=== PATIENT | female | born 1985 | race Caucasian/White ===

== ENCOUNTER → 2017-02-11 | Outpatient (CLI) | payer BC ==
--- NOTE | 2017-02-11 15:40 | NM ---
EXAMINATION TYPE: NM hepatobiliary w EF DATE OF EXAM: 02/11/2017 COMPARISON: None. HISTORY: Right upper quadrant pain. TECHNIQUE: After the intravenous administration of 5.2 mCi Tc 99m Mebrofenin hepatobiliary scintigrap hy is performed. Immediate images post injection. FINDINGS: There is satisfactory initial accumulation of tracer by the liver. The gallbladder is visualized wit hin 54 minutes. The small bowel activity is noted within 18 minutes. At one hour 8 ounces of oral e nsure plus is given to mimic CCK and gallbladder ejection fraction is calculated at 77 %, in the norm al range. Therefore there is no scintigraphic evidence of cystic or common bile duct obstruction to suggest acute cholecystitis or gallbladder dyskinesia. IMPRESSION: NORMAL NUCLEAR MEDICINE HEPATOBILIARY SCAN WITH EJECTION FRACTION.
== END ==
LOC: RADNMMAIN 13:02
PROVIDERS: ATTEND Family Medicine
DX: R10.9 Unspecified abdominal pain (principal)
CPT/HCPCS: 78226; A9537

== ENCOUNTER 2017-09-28 09:32 | Day surgery (SDC) | payer BC ==
[2017-09-24 09:50] VITALS: BMI 35.9
[2017-09-28 09:56] VITALS: RESP 16; TEMP 97.7
[2017-09-28] MEDS: LACTATED RINGERS 1,000 ML IV SCH ×2 (10:06→10:08)
[2017-09-28] MEDS ORDERED: PROPOFOL 10 MG/ML 20 ML VIAL IV ONE (10:09)
[2017-09-28] MEDS ORDERED: LIDOCAINE 1% INJ 10MG/ML (20 ML MDV) ONE (10:09)
--- NOTE | 2017-09-28 10:11 | P.GSHP ---
History of Present Illness H&P Date: 09/28/17 Chief Complaint: GERD, right quadrant pain Is a 32-year-old female referred from Dr. Sushant Thacker. Patient rents today for EGD. She's had issues with GERD and some right upper quadrant pain. Her HIDA scan performed February 2017 shows ejection fraction of 77%. Past Medical History Past Medical History: No Reported History Additional Past Medical History / Comment(s): PCOS, HAS BEEN HAVING ABD PAIN FOR ALMOST A YEAR PER PT History of Any Multi-Drug Resistant Organisms: None Reported Additional Past Surgical History / Comment(s): D&C Past Anesthesia/Blood Transfusion Reactions: No Reported Reaction Smoking Status: Never smoker - Past Family History Mother Family Medical History: No Reported History Medications and Allergies Home Medications Medication Instructions Recorded Confirmed Type No Known Home Medications [No 09/24/17 09/28/17 History Known Home Medications] Allergies Allergy/AdvReac Type Severity Reaction Status Date / Time No Known Allergies Allergy Verified 09/28/17 09:58 Surgical - Exam Vital Signs Temp Pulse Resp BP Pulse Ox 97.7 F 85 16 104/67 95 09/28/17 09:54 09/28/17 09:54 09/28/17 09:54 09/28/17 09:54 09/28/17 09:54 - General well developed, no distress - Eyes PERRL - ENT normal pinna - Neck no masses - Respiratory normal expansion - Cardiovascular Rhythm: regular - Abdomen Abdomen: soft, non tender Assessment and Plan Assessment: GERD, right quadrant pain. We'll perform EGD.
--- NOTE | 2017-09-28 10:18 | P.OP ---
Date of Procedure: 09/28/17 Preoperative Diagnosis: GERD Right quadrant pain Postoperative Diagnosis: Mild antral gastritis Small hiatal hernia Mild esophagitis Procedure(s) Performed: EGD Anesthesia: MAC Surgeon: Satinder Joseph Pathology: other (Antrum, esophagus) Condition: stable Disposition: PACU Description of Procedure: The patient's placed on the endoscopy table in the lateral position. She received IV sedation. The gastroscope placed oropharynx passed in the esophagus and stomach. Scope was then placed through the pylorus. The first second portion duodenum appeared normal. Scope was then brought back the antrum and this appeared mildly inflamed. A biopsies performed. The scope was retroflexed and remainder of the stomach appeared normal. There was a small hiatal hernia. The GE junction was at 40 cm the distal esophagus appeared mildly inflamed a biopsies performed. The proximal esophagus appeared normal. Scope was withdrawn for patient.
[2017-09-28] MEDS ORDERED: HYDROmorphone 0.5 MG/0.5 ML SYRINGE IVP ONE (10:40)
[2017-09-28 10:54] VITALS: BP 92/66; PULSE 77
== END 2017-09-28 11:36 | disposition home or self-care (01) ==
LOC: ORWHC2ENDO 09:32
PROVIDERS: ATTEND Surgery
DX: K20.9 Esophagitis, unspecified (principal); K29.50 Unspecified chronic gastritis without bleeding; K44.9 Diaphragmatic hernia without obstruction or gangrene; E28.2 Polycystic ovarian syndrome
CPT/HCPCS: 81025; 88305; 88342; 43239; J2001; J2704; J1170

== ENCOUNTER → 2019-09-19 | Day surgery (SDC) | payer BC ==
[2019-09-14 15:37] VITALS: BMI 38.5
[~2019-09-19] MED LIST: BUPIVACAIN-EPI 0.25%-1:200,000 30 ML VIAL SQ ONE; DEXAMETHASONE SOD PHOSPHATE 10 MG/ML 1 ML VIAL IV ONE; GLYCOPYRROLATE 0.2 MG/ML 2 ML VIAL ONE; HEPARIN SODIUM,PORCINE 5,000 UNIT/ML 1 ML VIAL SQ ONE; HYDROcodone/APAP 5-325MG 1 EACH TAB PO ONE; HYDROmorphone (PF) 1 MG/ML ONE; HYDROmorphone 0.5 MG/0.5 ML SYRINGE IVP PRN; KETAMINE 10 MG/ML 20 ML VIAL ONE; KETOROLAC 30 MG/ML 1 ML VIAL ONE; LACTATED RINGERS 1,000 ML IV SCH; LIDOCAINE 1% 20 ML VIAL (10MG/ML) FOR IV START INTRADERMA PRN; LIDOCAINE 1% INJ 10MG/ML (20 ML MDV) ONE; MIDAZOLAM 2 MG/2 ML VIAL ONE; NEOSTIGMINE 1 MG/ML 10 ML VIAL ONE; ONDANSETRON 4 MG/2 ML VIAL IVP ONE; PROPOFOL 10 MG/ML 20 ML VIAL IV ONE; ROCURONIUM BROMIDE 10 MG/ML 10 ML VIAL IV ONE; SUCCINYLCHOLINE CHLORIDE 100 MG/5 ML SYR IV ONE; fentaNYL (PF) 50 MCG/ML 2 ML AMP IV PRN; fentaNYL (PF) 50 MCG/ML 2 ML AMP ONE
[2019-09-19 09:11] LABS: Glucose,Whole Blood 89 mg/dL (75-99)
--- NOTE | 2019-09-19 09:55 | P.GSHP ---
History of Present Illness H&P Date: 09/19/19 Chief Complaint: Right upper quadrant pain This a 32-year-old female who's had complaints of right quadrant pain. Patient has had issues with pain and nausea when eating greasy or fried foods. Her HIDA scan shows an elevated ejection fraction. Past Medical History Past Medical History: No Reported History Additional Past Medical History / Comment(s): PCOS, HAS BEEN HAVING ABD PAIN FOR ALMOST A YEAR PER PT History of Any Multi-Drug Resistant Organisms: None Reported Additional Past Surgical History / Comment(s): D&C, wisdom teeth. Past Anesthesia/Blood Transfusion Reactions: No Reported Reaction Past Psychological History: No Psychological Hx Reported Smoking Status: Never smoker Past Alcohol Use History: None Reported Past Drug Use History: None Reported - Past Family History Mother Family Medical History: No Reported History Medications and Allergies Home Medications Medication Instructions Recorded Confirmed Type Muscle Relaxer 1 tab PO HS 09/14/19 09/19/19 History methylPREDNISolone Dose Pack 4 mg PO DIRECTED 09/14/19 09/19/19 History [Medrol Dose Pack] Allergies Allergy/AdvReac Type Severity Reaction Status Date / Time No Known Allergies Allergy Verified 09/19/19 08:48 Surgical - Exam Vital Signs Temp Pulse Resp BP Pulse Ox 98.3 F 87 16 109/77 97 09/19/19 08:58 09/19/19 08:58 09/19/19 08:58 09/19/19 08:58 09/19/19 08:58 - General well developed, no distress - Eyes PERRL - ENT normal pinna - Neck no masses - Respiratory normal expansion - Cardiovascular Rhythm: regular - Abdomen Abdomen: soft, non tender Assessment and Plan Plan: Chronic cholecystitis We'll perform laparoscopic cholecystectomy
--- NOTE | 2019-09-19 11:32 | P.OP ---
Date of Procedure: 09/19/19 Preoperative Diagnosis: Cholecystitis Postoperative Diagnosis: Cholelithiasis Procedure(s) Performed: Laparoscopic cholecystectomy Anesthesia: CATIE Surgeon: Satinder Joseph Estimated Blood Loss (ml): 5 Pathology: other (Gallbladder) Condition: stable Disposition: PACU Description of Procedure: The patient was placed on the operating table. The patient received a general endotracheal tube anesthesia. The patients abdomen was prepped and draped in the usual sterile fashion. Through an infraumbilical stab incision, the fascia of the anterior abdominal wall was grasped with a pair of Kochers and then the Veress needle was placed in the peritoneal cavity. Position of the Veress needle was confirmed with positive drop test. The abdomen was then insufflated. After adequate insufflation, the 10 mm trocar was placed in the peritoneal cavity. Following this the laparoscope was placed in the peritoneal cavity. The patient was placed in the head-up, right side up position and then a 5 mm trocar was placed in the right lateral and right subcostal position under direct visualization. A 8 mm trocar was placed in the epigastric position. The gallbladder was grasped in the fundus and infundibulum. Traction on the gallbladder was placed in the lateral and the cephalad positions. The triangle of Calot was visualized.. The cystic duct was bluntly dissected until the union of the cystic duct and common bile duct was seen. A critical view of safety was achieved. The cystic duct was then divided and sealed with the Harmonic scissors. A PDS Endoloop was then placed throughout the cystic duct stump. The cystic artery divided and sealed with the Harmonic scissors. The gallbladder was then removed from the liver bed using Harmonic scissors. The gallbladder was then extracted through the epigastric port site. Operative field was checked for any bleeding spots and Harmonic scissors was used to coagulate the liver bed. The abdomen was irrigated. The trocars were removed. The skin was closed using interrupted 3-0 Vicryl suture. Dermabond dressing were applied. The patient tolerated the procedure well.
[2019-09-19 11:40] VITALS: TEMP 97.6
[2019-09-19 12:23] VITALS: RESP 17
[2019-09-19 12:39] VITALS: BP 113/68; PULSE 80
== END | disposition home or self-care (01) ==
LOC: OR 08:32
PROVIDERS: ATTEND Surgery
DX: K80.10 Calculus of gallbladder with chronic cholecystitis without obstruction (principal); E28.2 Polycystic ovarian syndrome; Z79.52 Long term (current) use of systemic steroids; Z79.899 Other long term (current) drug therapy; Z98.818 Other dental procedure status
CPT/HCPCS: 81025; 88304; 47562; J2250; J1644; J2710; J0690; J2405; J2001; J3010; J1885; J1170; J0330; J2704